=== PATIENT | male | born 1940 | race Caucasian/White ===

== ENCOUNTER 2020-05-28 13:28 | Outpatient (CLI) | payer MEDICARE, BC, SELFPAY ==
--- NOTE | 2020-05-28 13:40 | CT_ITS ---
WS: [id number] CT HEAD TECHNIQUE: Noncontrast and contrast-enhanced CT of the head. CLINICAL INFORMATION: LEFT SIDED HEADACHE COMPARISON: None. DLP: 1252.[address] scans at [facility] use at least one of these dose optimization techniques: automat ed exposure control; mA and/or kV adjustment per patient size (includes targeted exams where dose is matched to clinical indication); or iterative reconstruction. FINDINGS: No evidence of intracranial hemorrhage or mass effect. Ventricular system and basal cisterns are garay nt. Normal farmer-white differentiation. No hydrocephalus. Mild small vessel changes. Moderate parenchy mal volume loss. Mastoid air cells are well aerated. Opacification left maxillary sinus and left ethmoid air cells. Pa rtial opacification left frontal ethmoidal recess. No abnormal intracranial enhancement. CT/CT head wo/w con [id number] IMPRESSION: 1. No evidence of intracranial hemorrhage or mass effect. 2. Mild small vessel changes. Moderate parenchymal volume loss. 3. No abnormal intracranial enhancement. 4. Partial opacification of the left maxillary sinus and left ethmoid air cell s. Partial opacification left frontal ethmoidal recess consistent with sinusiti s.
[2020-05-28 14:34] LABS: Blood Urea Nitrogen 16 mg/dL (8-23)
[2020-05-28] MEDS: iohexol 300 mg/mL 100 mL Btl IV (14:48)
== END 2020-05-28 13:29 | disposition home or self-care (01) ==
PROVIDERS: PCP Family Medicine; Visit Provider Family Medicine
DX: R51 Headache (principal)
CPT/HCPCS: 36415; 70470; 82565; 84520

== ENCOUNTER 2020-07-17 07:54 | Outpatient (CLI) | payer MEDICARE, BC, SELFPAY ==
--- NOTE | 2020-07-17 07:59 | MR_ITS ---
WS: [id number] MRI BRAIN WITH HIGH-RESOLUTION IMAGING THROUGH THE INTERNAL AUDITORY CANALS WITHOUT AND WITH CONTRAST HISTORY: Unspecified HEARING LOSS LEFT EAR COMPARISON: 05/28/[address] TECHNIQUE: Multiplanar, multisequence imaging is performed through the brain. Additional 3 mm imaging performed in multiple planes through the internal auditory canal. Postcontrast imaging with 15 ml's of Prohance. No acute intracranial hemorrhage, midline shift, edema or mass effect. Moderate to severe chronic microvascular ischemic changes in the white matter. No prior large territo ry infarct. Ventricles and extra-axial spaces are normal. No inferior displacement of cerebellar tonsils. Clivus and pituitary gland are normal. Internal and external auditory canals: Negative. Cranial nerves VII and VIII complexes: There is some very minimal asymmetric enhancement in the LEFT 7th and 8th cranial nerve complex. May not be significant. There is no mass or enhancing mass. Cerebellopontine angles: Normal. Paranasal sinuses: Bilateral maxillary sinus opacifications of mixed signal. Mild mucoperiosteal thic kening in the ethmoid and frontal sinuses. Mastoid air cells: Normal. Calvarium and scalp: Normal. Visualized [place] and dural venous sinuses demonstrate no abnormality. MR/MR iac's wo/w con* [id number] IMPRESSION: 1. No enhancing mass along the internal auditory canals. There is very minimal increased enhancement of the LEFT 7th and 8th cranial nerve complex. The signi ficance is uncertain. There is no atrophy or enlargement of the complex. 2. Moderate chronic microvascular ischemic disease. 3. Pansinusitis.
== END 2020-07-17 07:55 | disposition home or self-care (01) ==
LOC: RADSHAW 07:57
PROVIDERS: PCP Family Medicine; Visit Provider Specialist
DX: H91.92 Unspecified hearing loss, left ear (principal); J32.4 Chronic pansinusitis; I67.82 Cerebral ischemia
CPT/HCPCS: 70553; A9579

== ENCOUNTER 2022-07-23 21:35 | Outpatient (RCR) | payer MEDICARE, BC, SELFPAY | END 2022-08-16 23:59 | disposition home or self-care (01) | LOC: APT 21:35 | PROVIDERS: PCP Family Medicine; Visit Provider Nurse Practitioner Family | DX: M54.50 Low back pain, unspecified (principal); G89.29 Other chronic pain | CPT/HCPCS: 97110; 97140; 97162 ==

== ENCOUNTER 2022-08-17 06:00 | Outpatient (RCR) | payer MEDICARE, BC, SELFPAY | END 2022-09-15 23:59 | disposition home or self-care (01) | LOC: APT 06:00 | PROVIDERS: PCP Family Medicine; Visit Provider Nurse Practitioner Family | DX: M54.50 Low back pain, unspecified (principal); G89.29 Other chronic pain | CPT/HCPCS: 97110; 97112; 97164 ==

== ENCOUNTER 2022-09-23 15:08 | Outpatient (RCR) | payer MEDICARE, BC, SELFPAY | END 2022-10-16 23:59 | disposition home or self-care (01) | LOC: APT 15:08 | PROVIDERS: PCP Family Medicine; Visit Provider Nurse Practitioner Family | DX: M54.50 Low back pain, unspecified (principal) | CPT/HCPCS: 97110; 97112 ==